=== PATIENT | female | born 1945 | race Caucasian/White ===

== ENCOUNTER 2016-07-28 05:59 | Day surgery (SDC) | payer MEDICARE, OTHER ==
--- NOTE | ~2016-07-28 | OP ---
Record Of Operation [facility] [address] [place]. [address] NAME: PAT ALLEN : [birth year] STATUS : [facility]#: [id number] AGE: 70 ADM/REG DATE : 07/28/16 MR#: [id number] REPORT SERV DATE: 07/28/16 DICTATED BY: NEETU TA DATE: 07/28/16 REPORT STATUS : Draft TRANSCRIBED BY: MODL DATE: 07/28/16 DATE OF PROCEDURE: 07/28/2016 SURGEON: Neetu Ta M.D. TITLE OF OPERATION: Stage 1 InterStim. PREOPERATIVE DIAGNOSIS: Nonobstructive urinary retention. POSTOPERATIVE DIAGNOSIS: Nonobstructive urinary retention. INDICATIONS: Ms Allen is a 70-year-old female, with nonobstructive urinary retention. She has been doing CIC, however, she desires more definitive therapy. She is here for InterStim placement. ANESTHESIA: General. COMPLICATIONS: None. IMPLANTS: Curved InterStim lead with lead chuck wagon driver. NARRATIVE: The patient was brought to the operating room, identified by her wristband. General anesthesia was induced and Ancef and gentamicin were given for preoperative antibiotics. General anesthesia was induced and she was then placed in the prone position. She was secured to the bed with pads and tape. She was prepped and draped in sterile fashion. AP and lateral fluoroscopy images were taken and the third sacral foramina was localized on the right side of the body. An introducer needle was placed into the third sacral foramen at the upper superior and medial aspect of this foramen. The needle was tested and good response with anal angel and toe flexion were noted. Next, a bidirectional guide was placed through the needle and the needle was removed. A small skin incision was made with a 15-blade knife. An introducer sheath was placed over the bidirectional guide into the level of the mid sacrum. A curved electrode with stylet was then placed through the introducer sheath until a good position was obtained. All four electrodes were just beneath the anterior surface of the sacrum. The electrodes were sequentially tested and all four electrodes had opening voltages less than 1.2. Therefore, the lead was deployed in its current location by removing the sheath. X-rays confirmed good placement. The stylet was removed. The lead was tunneled over to a sub Sunny's pocket created in the upper right buttocks. The lead chuck wagon driver was placed as well as the boot. The lead was secured into the lead chuck wagon driver with the pre-provided wrench. The boot was placed over the lead and secured in place with two 2-0 silk ties. The lead was then tunneled to the left side of the body using the tunneling device. The pocket was irrigated with antibiotic impregnated solution. The subcutaneous tissues were closed with a 3-0 Vicryl suture in interrupted fashion. The skin was closed with 4-0 Monocryl in a subcuticular fashion. Dermabond dressing was placed, same 4-0 Monocryl sutures were used to close the insertion site for the lead in an interrupted fashion. The patient was then flipped to the supine position. She was straight-cathed and awoken from anesthesia. She was transferred Record Of [address] [address] NAME: PAT ALLEN : 47 STATUS : [facility] PAT#: [id number] AGE: 70 ADM/REG DATE : 07/28/16 MR#: [id number] REPORT SERV DATE: 07/28/16 DICTATED BY: NEETU TA DATE: 07/28/16 REPORT STATUS : Draft TRANSCRIBED BY: RENU DATE: 07/28/16 to recovery room in stable condition. There were no complications. I will see her back in one week for stage 2/lead removal. NAVNEET/RENU Neetu Ta MD / [id number] CC: MD Brody So Jr., M.D.
[~2016-07-28 05:59] MED LIST: B COMPLETE PO; BIOTIN5 MG PO; CALTRA600D PO; CITRUCELSF PO; CRANBERRY1 TAB OR; CRANBERRY300 MG PO; FISH-EPA1000 MG PO; GINKO PO; JUICE PLUS PO; JUICE PLUS VIT PO; KLONO1 PO; KLONO5 PO; KLONOPIN WAF0.25 MG PO; LEVOTHYROXIN50 MCG PO; LEVOTHYROXIN75 MCG PO; LEVSINTAB PO; MULTIPLE VIT PO; PAX10 PO; PEP20 PO; PREM625 PO; PRILO PO; PROBIOTIC; PROMEGA PO; PVC V; RESTORIL30 MG PO; SAPHRIS5 MG SL; SLO-NIACIN500 MG PO; V5 PO; VITC500 PO; ZOL50 PO; [UNRECOGNIZED DRUG - OTHER] OR
== END 2016-07-28 12:44 | disposition home or self-care (01) ==
LOC: SDC 05:59
PROVIDERS: Urology
PROC: 01HY0MZ Insertion of Neurostimulator Lead into Peripheral Nerve, Open Approach (ICD-10-PCS; principal; 2016-07-28 07:15)
DX: R33.9 Retention of urine, unspecified (principal); E03.9 Hypothyroidism, unspecified; H40.9 Unspecified glaucoma; F90.9 Attention-deficit hyperactivity disorder, unspecified type; F41.9 Anxiety disorder, unspecified; K58.9 Irritable bowel syndrome, unspecified; K64.9 Unspecified hemorrhoids; M19.90 Unspecified osteoarthritis, unspecified site; M54.30 Sciatica, unspecified side; Z88.1 Allergy status to other antibiotic agents; Z91.040 Latex allergy status; Z91.09 Other allergy status, other than to drugs and biological substances; Z79.2 Long term (current) use of antibiotics; Z79.899 Other long term (current) drug therapy; Z90.89 Acquired absence of other organs; Z90.710 Acquired absence of both cervix and uterus; Z98.890 Other specified postprocedural states
CPT/HCPCS: 81001; 85014; 85018; 93005; A9270-GY; C1778; J0330; J0690; J1580; J2405; J3010

== ENCOUNTER 2016-08-04 06:25 | Day surgery (SDC) | payer MEDICARE, OTHER ==
--- NOTE | ~2016-08-04 | OP ---
Record Of Operation [facility] [address] [place]. [address] NAME: PAT ALLEN : 47 STATUS : REG [facility]#: [id number] AGE: 70 ADM/REG DATE : 08/04/16 MR#: [id number] REPORT SERV DATE: 08/04/16 DICTATED BY: NEETU TA DATE: 08/04/16 REPORT STATUS : Draft TRANSCRIBED BY: MODL DATE: 08/04/16 DATE OF PROCEDURE: 08/04/2016 SURGEON: Neetu Ta M.D. TITLE OF OPERATION: InterStim stage II. PREOPERATIVE DIAGNOSIS: Urinary retention. POSTOPERATIVE DIAGNOSIS: Urinary retention. INDICATIONS: Mrs. Allen is a 70-year-old female with nonobstructive urinary retention. She had an InterStim lead placed last week. She has had a good result. She is here for battery placement. ANESTHESIA: General. COMPLICATIONS: None. IMPLANTS: InterStim battery. SPECIMENS: None. NARRATIVE: The patient was brought to the operating room, identified by wristband. General anesthesia was induced and Ancef and gentamicin were given for preoperative antibiotics. She was flipped to the prone position and secured to the bed with pads and tape. She was then prepped and draped in sterile fashion. Her pre-made incision in her right buttocks was opened up bluntly. The subcutaneous incision stitches were cut with scissors. The lead and lead computer forensic examiner were identified. The sutures holding the boot in place were cut. The boot was removed. The lead was detached from the lead computer forensic examiner. The lead computer forensic examiner was cut and removed from the wound in a sterile fashion. Next, the lead was hooked into the InterStim battery and secured in place with a wrench. The subcutaneous pocket was rinsed with antibiotic-impregnated solution. The battery was placed into the subcutaneous pocket. The battery was tested on the field with the InterStim rep. It was found to have adequate function. The wound was again irrigated with antibiotic-impregnated solution. The subcutaneous tissues were closed with a 3-0 Vicryl suture in interrupted fashion. Skin was closed with a 4-0 Monocryl in a subcuticular fashion. 5 mL of 0.25% Marcaine was used for local anesthesia. Dermabond dressing was placed. The patient was awoken from anesthesia and transferred to the recovery room in stable condition. I will see her back in two to three weeks to check on her progress. NAVNEET/RENU Neetu Juarez Record Of Operation [address] [place]. [address] NAME: PAT ALLEN : 47 STATUS : [facility] [place] [facility] PAT#: [id number] AGE: 70 ADM/REG DATE : 08/04/16 MR#: [id number] REPORT SERV DATE: 08/04/16 DICTATED BY: NEETU TA DATE: 08/04/16 REPORT STATUS : Draft TRANSCRIBED BY: RENU DATE: 08/04/16 MD [place] / [id number] CC: MD Brody So Jr., M.D.
== END 2016-08-04 13:44 | disposition home or self-care (01) ==
LOC: SDC 06:25
PROVIDERS: Urology
PROC: 0JH70BZ Insertion of Single Array Stimulator Generator into Back Subcutaneous Tissue and Fascia, Open Approach (ICD-10-PCS; principal; 2016-08-04 07:15)
DX: R33.9 Retention of urine, unspecified (principal); Z91.040 Latex allergy status; Z88.8 Allergy status to other drugs, medicaments and biological substances; Z88.1 Allergy status to other antibiotic agents
CPT/HCPCS: A9270-GY; C1767; C1787; J0690; J1580; J2405; J2710; J3010